=== PATIENT | female | born 1950 | race American Indian/Alaskan Native ===

== ENCOUNTER 2019-04-14 15:47 | Inpatient (IN) | payer MEDICARE ==
--- NOTE | 2019-04-14 17:18 | Emergency Department Report ---
ED General Adult HPI - General Chief complaint: Neuro Symptoms/Deficit Stated complaint: INVOLUNTARY MOVEMENTS Time Seen by Provider: 04/14/19 17:07 Source: patient, EMS Mode of arrival: Stretcher Limitations: Physical Limitation - History of Present Illness Initial comments: Patient is 69 years old female who resides at [facility] facility. Amarjit liu brought to the emergency room for evaluation of jerking movements in her right hand since last night. Patient denied any other symptoms. She denied any chest pain, weakness, numbness or tingling sensation. She also denied any headache, chest pain, shortness of breath, abdominal pain. - Related Data Allergies Allergy/AdvReac Type Severity Reaction Status Date / Time No Known Allergies Allergy Unverified 04/14/19 17:42 ED Review of Systems ROS: Stated complaint: INVOLUNTARY MOVEMENTS Other details as noted in HPI Comment: All other systems reviewed and negative Constitutional: denies: chills, fever Respiratory: denies: cough, shortness of breath, SOB with exertion Cardiovascular: denies: chest pain, palpitations Gastrointestinal: diarrhea (resolved yesterday. One episode last night). denies: abdominal pain, nausea, vomiting, constipation, hematemesis, hematochezi a Neurological: denies: headache, weakness, numbness, paresthesias, confusion, abnormal gait ED Past Medical Hx - Social History Smoking Status: Never Smoker Substance Use Type: None ED Physical Exam - General Limitations: Physical Limitation General appearance: alert, in no apparent distress - Head Head exam: Present: atraumatic, normocephalic, normal inspection - Eye Eye exam: Present: normal appearance, PERRL - ENT ENT exam: Present: normal exam, normal orophraynx, mucous membranes moist - Neck Neck exam: Present: normal inspection, full ROM. Absent: tenderness, meningismus, lymphadenopathy, thyromegaly - Respiratory Respiratory exam: Present: normal lung sounds bilaterally - Cardiovascular Cardiovascular Exam: Present: regular rate, normal rhythm, normal heart sounds - GI/Abdominal GI/Abdominal exam: Present: soft, normal bowel sounds. Absent: distended, tenderness, guarding, rebound, rigid, organomegaly, mass, bruit, pulsatile mass, hernia - Extremities Exam Extremities exam: Present: normal inspection, full ROM, normal capillary refill. Absent: pedal edema, calf tenderness - Back Exam Back exam: Present: normal inspection, full ROM. Absent: CVA tenderness (R) - Neurological Exam Neurological exam: Present: alert, oriented X3, CN II-XII intact - Psychiatric Psychiatric exam: Present: normal mood - Skin Skin exam: Present: warm, intact, normal color ED Course Vital Signs 04/14/19 04/14/19 04/14/19 16:42 17:13 20:12 Temperature 97.6 F 97.7 F Pulse Rate 64 87 Respiratory 14 14 13 Rate Blood Pressure 110/54 Blood Pressure 110/54 143/70 [Right] O2 Sat by Pulse 97 95 97 Oximetry ED Medical Decision Making - Lab Data Result diagrams: 04/14/19 17:22 04/14/19 17:22 - EKG Data -: EKG Interpreted by Nc EKG shows normal: sinus rhythm Rate: normal - Radiology Data Radiology results: report reviewed CT brain is negative for acute finding. - Medical Decision Making Patient is 69 years old female who resides at [facility]. Patient brought to the emergency room for evaluation of jerking movements in her right hand since last night. Patient denied any other symptoms. She denied any chest pain, weakness, numbness or tingling sensation. She also denied any headache, chest pain, shortness of breath, abdominal pain. Labs reviewed and showed a potassium of 5.5, creatinine 3.4 and a BUN of 60. Contacted long-term to find out if there is any baseline creatinine but unfortunately there is no record. I assumed this is acute on chronic renal failure. Patient started on normal saline. I discussed the patient was Dr. Aguilar, he had great admitted the patient to medical service for further management. Critical Care Time: Yes Critical care time in (mins) excluding proc time.: 30 Critical care attestation.: If time is entered above; I have spent that time in minutes in the direct care of this critically ill patient, excluding procedure time. ED Disposition Clinical Impression: Acute on chronic renal failure, Hyperkalemia Disposition: OP ADMIT IP TO THIS HOSP Is pt being admited?: Yes Condition: Stable
[2019-04-14 17:38] LABS: Basophils # (Auto) 0.1 K/mm3 (0.0-0.1); Basophils % (Auto) 0.8 % (0.0-1.8); Eosinophils # (Auto) 0.3 K/mm3 (0.0-0.4); Hematocrit 26.6 % (30.3-42.9); Hemoglobin 8.8 gm/dl (10.1-14.3); Lymphocytes # (Auto) 2.6 K/mm3 (1.2-5.4); Lymphocytes % (Auto) 30.1 % (13.4-35.0); Mean Corpuscular HGB Conc 33 % (30-34); Mean Corpuscular Volume 94 fl (79-97); Monocytes # (Auto) 0.5 K/mm3 (0.0-0.8); Monocytes % (Auto) 5.3 % (0.0-7.3); Platelet Count 231 K/mm3 (140-440); Red Blood Count 2.84 M/mm3 (3.65-5.03); Red Cell Distribution Width 15.1 % (13.2-15.2)
[2019-04-14 17:59] LABS: Alanine Aminotransferase 32 units/L (7-56); Albumin 3.2 g/dL (3.9-5); BUN/Creatinine Ratio 18; Blood Urea Nitrogen 61 mg/dL (7-17); Calcium 8.7 mg/dL (8.4-10.2); Hemolysis Index 3
[2019-04-14 19:39] LABS: Bacteria,Urine 1+ /HPF (Negative); Bilirubin,Urine NEG (Negative); Blood,Urine SM (Negative); Color,Urine Yellow (Yellow); Mucus,Urine FEW /HPF; Urobilinogen,Urine < 2.0 mg/dL (<2.0)
--- NOTE | 2019-04-14 20:08 | Cat Scan Report ---
CT head/brain wo con INDICATION / CLINICAL INFORMATION: jerking movement to the right upper extremity. TECHNIQUE: Axial CT imaging of brain was obtained without contrast. Coronal and sagittal reformatted imaging obt ained and reviewed. All CT scans at this location are performed using CT dose reduction for ALARA by means of automated exposure control. COMPARISON: Prior CT head from 2010 was not available for review. FINDINGS: No intracranial hemorrhage, mass, or midline shift is identified. No extra-axial fluid collection or suggestion of acute territorial infarct. Ventricular system and basilar cisterns are unremarkable. Th ere is moderate hypoattenuation throughout the white matter consistent with microvascular angiopathy. Visualized paranasal sinuses and mastoid air cells are well aerated and clear. No calvarial abnormali ty. IMPRESSION: 1. No acute intracranial abnormality. 2. 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
[2019-04-14] MEDS ORDERED: SODIUM CHLORIDE 0.9% 1000 ML 1,000 ML IV ONE (20:13)
[2019-04-14] MEDS ORDERED: SODIUM POLYSTYRENE 15 GM/60 ML ORAL LIQD PO ONE (22:19)
[2019-04-14] MEDS ORDERED: DEXTROSE 50% IN WATER (25GM) 50 ML SYRINGE IV ONE (22:23)
[2019-04-14] MEDS ORDERED: INSULIN REGULAR, HUMAN 100 UNITS/1 ML IV ONE (22:44)
[2019-04-14] MEDS ORDERED: SODIUM CHLORIDE 0.9% 1000 ML 1,000 ML IV SCH (23:00)
[2019-04-14] MEDS ORDERED: SODIUM POLYSTYRENE 15 GM/60 ML ORAL LIQD ONE (23:01)
[2019-04-14] MEDS ORDERED: INSULIN REGULAR, HUMAN 100 UNITS/1 ML ONE (23:02)
[2019-04-14] MEDS: HEPARIN 5,000 UNIT/1 ML VIAL SUB-Q SCH (23:16)
[2019-04-15] MEDS: traMADol 50 MG TAB PO PRN ×2 (03:47→14:08)
[2019-04-15] MEDS ORDERED: traMADol 50 MG TAB PO PRN (03:50)
[2019-04-15] MEDS ORDERED: DOCUSATE SODIUM 100 MG CAP PO PRN (03:50)
--- NOTE | 2019-04-15 07:09 | History and Physical Report ---
CHIEF COMPLAINT: Weakness. Other complaints include jerky movement of the body. HISTORY OF PRESENTING ILLNESS: The patient is a 69-year-old female brought from a skilled nursing because of weakness. The patient states she is having problem ambulating and also noted some jerky movement in the right hand that started the night prior to presentation. There is no history of numbness. No history of dizziness or tingling sensation. Also, the patient denied history of speech impairment, but complained about feeling weak generally and unable to ambulate. There is no history of chest pain, shortness of breath, nausea or vomiting. PAST MEDICAL HISTORY: Pertinent for chronic kidney disease. The patient's past medical history is also pertinent for diabetes mellitus. The patient also has past medical history of hypertension. PAST SURGICAL HISTORY: Noncontributory. FAMILY HISTORY: Noncontributory. SOCIAL HISTORY: The patient stays at the [facility] and does not smoke cigarette, does not drink alcohol and does not use illicit drugs. MEDICATIONS: The patient's home medications include Tylenol 650 mg by mouth every 4 hours. The patient is on amitriptyline 200 mg by mouth at bedtime. Also, the patient is on aspirin 81 mg enteric coated by mouth daily. The patient is on atorvastatin 20 mg at bedtime. Also, the patient is on carvedilol 6.25 mg by mouth every morning. The patient is also on diclofenac 1% topical 2 g applied topically q.i.d. The patient is on docusate sodium 100 mg by mouth twice daily and fluoxetine 40 mg by mouth daily. The patient is also on Lasix 40 mg by mouth daily and on folic acid 1 mg by mouth daily. The patient is also on gabapentin 300 mg by mouth twice daily and on insulin lispro 3 units subcutaneous t.i.d. with meals. The patient is also on lidocaine patch topical, 1 patch topical every 24 hours. The patient is on losartan 50 mg by mouth daily and nifedipine 30 mg by mouth daily. The patient is also on MiraLax 17 grams by mouth daily and sennosides 8.6 mg 2 tablets by mouth daily. The patient is on tramadol 50 mg by mouth every 6 hours as needed for pain. ALLERGIES: There are no known drug allergies. REVIEW OF SYSTEMS: CONSTITUTIONAL: There is no fever, no chills, no diaphoresis. HEENT: There is no headache or sore throat. CARDIOVASCULAR SYSTEM: There is no chest pain or orthopnea. RESPIRATORY SYSTEM: There is no shortness of breath or cough. GASTROINTESTINAL SYSTEM: There is no nausea, no vomiting, no abdominal pain, diarrhea or constipation. NEUROLOGICAL SYSTEM: Generalized weakness noted. Jerky movement of the right upper extremity noted. MUSCULOSKELETAL SYSTEM: There is no joint pain or swelling. DERMATOLOGICAL SYSTEM: There is no skin rash or itching. GENITOURINARY SYSTEM: There is no dysuria, hematuria, or flank pain. Rest of system review is normal. PHYSICAL EXAMINATION: GENERAL: At the time of exam, the patient was found to be alert, oriented x 3 and not in acute distress. VITAL SIGNS: At the initial time of presentation showed temperature of 97.6 degrees Fahrenheit, pulse of 64, respirations 14, blood pressure 110/54, O2 sat of 97% on room air. HEENT: Showed pupils to be equal, round, reactive to light and accommodating. Extraocular muscles are intact. NECK: Supple with no JVD or carotid bruit. CARDIOVASCULAR SYSTEM: Showed normal first and second heart sounds with no gallops or murmurs and the patient has 1+ pitting edema. RESPIRATORY SYSTEM: Showed good air entry on both sides of the lungs with no abnormal breath sounds. GASTROINTESTINAL SYSTEM: Showed abdomen to be full, soft, nontender with no organomegaly or rigidity. NEUROLOGIC: Shows no focal deficit. MUSCULOSKELETAL SYSTEM: Showed no joint swelling or tenderness except for mild swelling in the ankles. GENITOURINARY: Showed no costovertebral angle tenderness. PERTINENT LABORATORY AND IMAGING STUDIES: The patient has CT of the head without contrast done that shows no acute intracranial abnormality. There are age-related changes including microvascular angiopathy. Lab results, the patient has CBC done with normal white count, low hemoglobin of 8.8 and low hematocrit of 26.6 with CBC differential being unremarkable. The patient's chemistry showed low sodium of 133 with elevated potassium level of 5.5, low CO2 of 19, high BUN of 61 and high creatinine of 3.4 with elevated blood glucose level of 213. The patient's albumin level is slightly low with a value of 3.2 and the patient's urinalysis shows yellow colored, slightly cloudy urine with elevated urine wbc's of 8 and small urine leukocyte esterase with 1+ bacteria and negative urine nitrite. DIAGNOSES: 1. Weakness. 2. Chronic kidney disease. 3. Hyperkalemia. 4. Urinary tract infection. 5. Anemia. PLAN OF CARE: 1. The patient will be admitted to medical/surgical floor on remote telemetry. 2. The patient will have Nephrology consult with Dr. Winters for management of chronic kidney disease. Also, the patient will have physical therapy consult for management of weakness and difficulty with ambulation. 3. The patient will be on Kayexalate 30 g by mouth x 1 dose. The patient will be placed on IV dextrose 50, 25 mL x 1 dose and IV regular insulin 8 units for treatment of hyperkalemia. 4. The patient will be on heparin 5000 units subcutaneous q. 12 for DVT prophylaxis. 5. The patient will be on her home medication as shown in the medication reconciliation section. 6. The patient will be on ceftriaxone 1 g IV daily for treatment of UTI. 7. The patient will be on Accu-Chek before meals and at bedtime, followed by low-dose sliding scale using regular insulin coverage. 8. The patient will be on consistent carbohydrate diet and low sodium diet. JOB# [id number] ÁNGELN/PREMA CAMPOS
[2019-04-15 07:12] LABS: Calcium 8.6 mg/dL (8.4-10.2)
[2019-04-15] MEDS: INSULIN REGULAR, HUMAN 100 UNITS/1 ML SUB-Q SCH ×4 (07:41→22:32)
[2019-04-15] MEDS: NIFEdipine XL 30 MG TAB PO SCH (08:01)
--- NOTE | 2019-04-15 08:28 | Progress Note ---
Assessment and Plan Assessment and plan: Patient is 69 years old female who resides at [facility] facility with past medical hx CKD, DM, HTN. Patient brought to the emergency room for evaluation of jerking movements in her right hand since last night. Patient denied any other symptoms. She denied any chest pain, weakness, numbness or tingling sensation. She also denied any headache, chest pain, shortness of breath, abdominal pain. 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 Hyponatremia- Improved Plan Continue supportive care Neurology eval Obtain PT/OT eval Nephrology consulted ?IF Twitches was secondary to hyperkalemia vs underlying Central disease Continue supporitve care, IV hydration Dm management DVT/GI prophy Anticipate discharge in AM History Interval history: Patient seen and examined, Daughter at bedside, provides more information, although involuntary twitching frequency appears improved, she reports spilling her coffee this morning due to the twitches. Patient currently in rehab due to left knee pain from a fall. Hospitalist Physical - Physical exam Narrative exam: - General Limitations: Physical Limitation General appearance: alert, mild distress secondary to left knee pain, subacute, obese - Head Head exam: Present: atraumatic, normocephalic, normal inspection - Eye Eye exam: Present: normal appearance, PERRL - ENT ENT exam: Present: normal exam, normal orophraynx, mucous membranes moist - Neck Neck exam: Present: normal inspection, full ROM. Absent: tenderness, mening ismus, lymphadenopathy, thyromegaly - Respiratory Respiratory exam: Present: normal lung sounds bilaterally - Cardiovascular Cardiovascular Exam: Present: regular rate, normal rhythm, normal heart sounds - GI/Abdominal GI/Abdominal exam: Present: soft, normal bowel sounds. Absent: distended, tenderness, guarding, rebound, rigid, organomegaly, mass, bruit, pulsatile mass, hernia - Extremities Exam Extremities exam: Present: normal inspection, full ROM, normal capillary refill. Absent: pedal edema, calf tenderness - Back Exam Back exam: Present: normal inspection, full ROM. Absent: CVA tenderness (R) - Neurological Exam Neurological exam: Present: alert, oriented X3, CN II-XII intact, intermittent twitching - Psychiatric Psychiatric exam: Present: normal mood - Skin Skin exam: Present: warm, intact, normal color - Constitutional Vitals: Temp Pulse Resp BP Pulse Ox 99.1 F 95 H 20 182/82 100 04/15/19 07:14 04/15/19 07:14 04/15/19 07:14 04/15/19 07:14 04/15/19 07:14 Results - Labs CBC & Chem 7: 04/14/19 17:22 04/15/19 05:56 Labs: Laboratory Last Values WBC 8.8 K/mm3 (4.5-11.0) 04/14/19 17:22 RBC 2.84 M/mm3 (3.65-5.03) L 04/14/19 17:22 Hgb 8.8 gm/dl (10.1-14.3) L 04/14/19 17:22 Hct 26.6 % (30.3-42.9) L 04/14/19 17:22 MCV 94 fl (79-97) 04/14/19 17:22 MCH 31 pg (28-32) 04/14/19 17:22 MCHC 33 % (30-34) 04/14/19 17:22 RDW 15.1 % (13.2-15.2) 04/14/19 17:22 Plt Count 231 K/mm3 (140-440) 04/14/19 17:22 Lymph % (Auto) 30.1 % (13.4-35.0) 04/14/19 17:22 [place] % (Auto) 5.3 % (0.0-7.3) 04/14/19 17:22 Eos % (Auto) 4.0 % (0.0-4.3) 04/14/19 17:22 Baso % (Auto) 0.8 % (0.0-1.8) 04/14/19 17:22 Lymph # 2.6 K/mm3 (1.2-5.4) 04/14/19 17:22 [place]ama # 0.5 K/mm3 (0.0-0.8) 04/14/19 17:22 Eos # 0.3 K/mm3 (0.0-0.4) 04/14/19 17:22 Baso # 0.1 K/mm3 (0.0-0.1) 04/14/19 17:22 Seg Neutrophils % 59.8 % (40.0-70.0) 04/14/19 17:22 Seg Neutrophils # 5.3 K/mm3 (1.8-7.7) 04/14/19 17:22 Sodium 140 mmol/L (137-145) D 04/15/19 05:56 Potassium 4.6 mmol/L (3.6-5.0) 04/15/19 05:56 Chloride 107.4 mmol/L (98-107) H 04/15/19 05:56 Carbon Dioxide 22 mmol/L (22-30) 04/15/19 05:56 Anion Gap 15 mmol/L 04/15/19 05:56 BUN 56 mg/dL (7-17) H 04/15/19 05:56 Creatinine 3.0 mg/dL (0.7-1.2) H 04/15/19 05:56 Estimated GFR 19 ml/min 04/15/19 05:56 BUN/Creatinine Ratio 19 % 04/15/19 05:56 Glucose 154 mg/dL (65-100) H 04/15/19 05:56 POC Glucose 149 (70-105) H 04/15/19 07:20 Calcium 8.6 mg/dL (8.4-10.2) 04/15/19 05:56 Total Bilirubin < 0.20 mg/dL (0.1-1.2) 04/14/19 17:22 AST 22 units/L (5-40) 04/14/19 17:22 ALT 32 units/L (7-56) 04/14/19 17:22 Alkaline Phosphatase 95 units/L (35-129) 04/14/19 17:22 Total Protein 6.6 g/dL (6.3-8.2) 04/14/19 17:22 Albumin 3.2 g/dL (3.9-5) L 04/14/19 17:22 Albumin/Globulin Ratio 0.9 % 04/14/19 17:22 Urine Color Yellow (Yellow) 04/14/19 19:20 Urine Turbidity Slightly-cloudy (Clear) 04/14/19 19:20 Urine pH 5.0 (5.0-7.0) 04/14/19 19:20 Ur Specific [place] 1.014 (1.003-1.030) 04/14/19 19:20 Urine Protein 100 mg/dl mg/dL (Negative) 04/14/19 19:20 Urine Glucose (UA) 50 mg/dL (Negative) 04/14/19 19:20 Urine Ketones Neg mg/dL (Negative) 04/14/19 19:20 Urine Blood Sm (Negative) 04/14/19 19:20 Urine Nitrite Neg (Negative) 04/14/19 19:20 Urine Bilirubin Neg (Negative) 04/14/19 19:20 Urine Urobilinogen < 2.0 mg/dL (<2.0) 04/14/19 19:20 Ur Leukocyte Esterase Sm (Negative) 04/14/19 19:20 Urine WBC (Auto) 8.0 /HPF (0.0-6.0) H 04/14/19 19:20 Urine RBC (Auto) 6.0 /HPF (0.0-6.0) 04/14/19 19:20 U Epithel Cells (Auto) 4.0 /HPF (0-13.0) 04/14/19 19:20 Urine Bacteria (Auto) 1+ /HPF (Negative) 04/14/19 19:20 Urine Mucus Few /HPF 04/14/19 19:20 Active Medications - Current Medications Current Medications: Generic Name Dose Route Start Last Admin Trade Name Freq PRN Reason Stop Dose Admin Amitriptyline HCl 200 mg 04/15/19 22:00 Elavil PO QHS [facility] Atorvastatin Calcium 20 mg 04/15/19 22:00 Lipitor PO QHS [facility] Carvedilol 6.25 mg 04/15/19 10:00 Coreg PO QAM [facility] Docusate Sodium 100 mg 04/15/19 03:50 Colace PO BID PRN Constipation Fluoxetine HCl 40 mg 04/15/19 10:00 Prozac PO QDAY [facility] Folic Acid 1 mg 04/15/19 10:00 Folvite PO QDAY [facility] Gabapentin 300 mg 04/15/19 10:00 Neurontin PO BID [facility] Heparin Sodium (Porcine) 5,000 unit 04/14/19 22:15 04/14/19 23:16 Heparin SUB-Q 5,000 unit Q12HR [facility] Administration Ceftriaxone Sodium 1 gm in 50 mls @ 100 mls/hr 04/15/19 10:00 Rocephin/Ns 1 Gm/50 Ml IV Q24HR [facility] Protocol Insulin Human Regular 0 units 04/15/19 07:30 04/15/19 07:41 Humulin R SUB-Q Not Given AC [facility] Protocol Insulin Human Regular 0 units 04/15/19 22:00 Humulin R SUB-Q QHS [facility] Protocol Losartan Potassium 50 mg 04/15/19 10:00 Cozaar PO QDAY [facility] Nifedipine 30 mg 04/15/19 08:00 04/15/19 08:01 Procardia Xl PO 30 mg QDAY@0800 [facility] Administration Polyethylene Glycol 17 gm 04/15/19 10:00 Miralax 3350 PO QDAY [facility] Tramadol HCl 50 mg 04/15/19 03:33 04/15/19 03:47 Ultram PO 50 mg Q6H PRN Administration Pain, Moderate (4-6)
[2019-04-15] MEDS ORDERED: DICLOFENAC SODIUM 1% TOPICAL GEL 100 GM TP SCH (10:00)
[2019-04-15] MEDS ORDERED: LOSARTAN 50 MG TAB PO SCH (10:00)
[2019-04-15] MEDS ORDERED: FLUoxetine 20 MG CAP PO SCH (10:00)
[2019-04-15] MEDS: HEPARIN 5,000 UNIT/1 ML VIAL SUB-Q SCH ×2 (10:08→22:31)
[2019-04-15] MEDS: GABAPENTIN 300 MG CAP PO SCH ×2 (10:08→22:31)
[2019-04-15] MEDS: FOLIC ACID 1 MG TAB PO SCH (10:09)
[2019-04-15] MEDS: POLYETHYLENE GLYCOL 3350 17 GM POWDER PO SCH (10:09)
[2019-04-15] MEDS: carvediloL 6.25 MG TAB PO SCH (10:09)
[2019-04-15] MEDS: cefTRIAXone/NS 1 GM/50 ML 1 GM/50 ML BAG IV SCH (10:09)
--- NOTE | 2019-04-15 11:20 | Consultation ---
History of Present Illness - Reason for Consult Consult date: 04/15/19 acute renal failure Requesting physician: MAURICIO JACKSON - History of Present Illness 69 years old female who resides at [facility] facility. Patient brought to the emergency room for evaluation of jerking movements in her right hand since last night. Patient denied any other symptoms. She denied any chest pain, weakness, numbness or tingling sensation. She also denied any headache, chest pain, shortness of breath, abdominal pain. ROS: Stated complaint: INVOLUNTARY MOVEMENTS Other details as noted in HPI Comment: All other systems reviewed and negative Constitutional: denies: chills, fever Respiratory: denies: cough, shortness of breath, SOB with exertion Cardiovascular: denies: chest pain, palpitations Gastrointestinal: diarrhea (resolved yesterday. One episode last night). denies: abdominal pain, nausea, vomiting, constipation, hematemesis, hematochezia Neurological: denies: headache, weakness, numbness, paresthesias, confusion, abnormal gait - Social History Smoking Status: Never Smoker Substance Use Type: None Past History Past Medical History: diabetes, hypertension Medications and Allergies Allergies Allergy/AdvReac Type Severity Reaction Status Date / Time No Known Allergies Allergy Unverified 04/14/19 17:42 Home Medications Medication Instructions Recorded Confirmed Last Taken Type Acetaminophen [Tylenol] 1,000 mg PO Q8HR 04/14/19 04/14/19 Unknown History Acetaminophen [Tylenol] 650 mg PO Q4HR PRN 04/14/19 04/14/19 Unknown History Amitriptyline HCl 200 mg PO QHS 04/14/19 04/14/19 Unknown History Aspirin EC [Halfprin EC] 81 mg PO QDAY 04/14/19 04/14/19 Unknown History AtorvaSTATin [Lipitor] 20 mg PO QHS 04/14/19 04/14/19 Unknown History Carvedilol [Coreg] 6.25 mg PO QAM 04/14/19 04/14/19 Unknown History Diclofenac 1% [Diclofenac 1% 2 gm TP QID 04/14/19 04/14/19 Unknown History topical gel] Docusate Sodium [Colace] 100 mg PO BID PRN 04/14/19 04/14/19 Unknown History FLUoxetine HCL [PROzac] 40 mg PO QDAY 04/14/19 04/14/19 Unknown History Folic Acid [Folvite] 1 mg PO QDAY 04/14/19 04/14/19 Unknown History Furosemide [Lasix TAB] 40 mg PO BID 04/14/19 04/14/19 Unknown History Gabapentin [Neurontin] 300 mg PO BID 04/14/19 04/14/19 Unknown History Insulin Lispro 3 unit SQ TIDWM 04/14/19 04/14/19 Unknown History Lidocaine [Lidoderm] 1 each TP Q24H PRN 04/14/19 04/14/19 Unknown History Lispro Insulin [HumaLOG] See Protocol SQ ACHS 04/14/19 04/14/19 Unknown History Losartan [Cozaar] 50 mg PO QDAY 04/14/19 04/14/19 Unknown History NIFEdipine [Nifedipine ER] 30 mg PO QDAY 04/14/19 04/14/19 Unknown History Polyethylene Glycol 3350 [Miralax 17 gm PO QDAY 04/14/19 04/14/19 Unknown History 3350] Sennosides Tab [Senokot] 2 tab PO QDAY PRN 04/14/19 04/14/19 Unknown History traMADol [Ultram] 50 mg PO Q6HR PRN 04/14/19 04/14/19 Unknown History Active Meds: Active Medications Amitriptyline HCl (Elavil) 200 mg PO QHS [facility] Atorvastatin Calcium (Lipitor) 20 mg PO QHS [facility] Carvedilol (Coreg) 6.25 mg PO QAM [facility] Last Admin: 04/15/19 10:09 Dose: 6.25 mg Documented by: Docusate Sodium (Colace) 100 mg PO BID PRN PRN Reason: Constipation Fluoxetine HCl (Prozac) 40 mg PO QDAY [facility] Last Admin: 04/15/19 10:08 Dose: 40 mg Documented by: Folic Acid (Folvite) 1 mg PO QDAY [facility] Last Admin: 04/15/19 10:09 Dose: 1 mg Documented by: Gabapentin (Neurontin) 300 mg PO BID [facility] Last Admin: 04/15/19 10:08 Dose: 300 mg Documented by: Heparin Sodium (Porcine) (Heparin) 5,000 unit SUB-Q Q12HR [facility] Last Admin: 04/15/19 10:08 Dose: 5,000 unit Documented by: Ceftriaxone Sodium (Rocephin/Ns 1 Gm/50 Ml) 1 gm in 50 mls @ 100 mls/hr IV Q24HR [facility]; Protocol Last Admin: 04/15/19 10:09 Dose: 100 mls/hr Documented by: Insulin Human Regular (Humulin R) 0 units SUB-Q AC [facility]; Protocol Last Admin: 04/15/19 07:41 Dose: Not Given Documented by: Insulin Human Regular (Humulin R) 0 units SUB-Q QHS [facility]; Protocol Losartan Potassium (Cozaar) 50 mg PO QDAY [facility] Last Admin: 04/15/19 10:09 Dose: 50 mg Documented by: Nifedipine (Procardia Xl) 30 mg PO QDAY@0800 [facility] Last Admin: 04/15/19 08:01 Dose: 30 mg Documented by: Polyethylene Glycol (Miralax 3350) 17 gm PO QDAY [facility] Last Admin: 04/15/19 10:09 Dose: Not Given Documented by: Tramadol HCl (Ultram) 50 mg PO Q6H PRN PRN Reason: Pain, Moderate (4-6) Last Admin: 04/15/19 03:47 Dose: 50 mg Documented by: Exam - Vital Signs Vital signs: Vital Signs Temp Pulse Resp BP Pulse Ox 97.6 F 64 14 110/54 97 04/14/19 16:42 04/14/19 16:42 04/14/19 16:42 04/14/19 16:42 04/14/19 16:42 - Physical Exam Narrative exam: - General Limitations: Physical Limitation General appearance: alert, in no apparent distress - Head Head exam: Present: atraumatic, normocephalic, normal inspection - Eye Eye exam: Present: normal appearance, PERRL - ENT ENT exam: Present: normal exam, normal orophraynx, mucous membranes moist - Neck Neck exam: Present: normal inspection, full ROM. Absent: tenderness, meningismus, lymphadenopathy, thyromegaly - Respiratory Respiratory exam: Present: normal lung sounds bilaterally - Cardiovascular Cardiovascular Exam: Present: regular rate, normal rhythm, normal heart sounds - GI/Abdominal GI/Abdominal exam: Present: soft, normal bowel sounds. Absent: distended, tenderness, guarding, rebound, rigid, organomegaly, mass, bruit, pulsatile mass, hernia - Extremities Exam Extremities exam: Present: normal inspection, full ROM, normal capillary refill. Absent: pedal edema, calf tenderness - Back Exam Back exam: Present: normal inspection, full ROM. Absent: CVA tenderness (R) - Neurological Exam Neurological exam: Present: alert, oriented X3, CN II-XII intact - Psychiatric Psychiatric exam: Present: normal mood - Skin Skin exam: Present: warm, intact, normal color Results - Lab Results 04/14/19 17:22 04/15/19 05:56 Most recent lab results Calcium 8.6 mg/dL (8.4-10.2) 04/15/19 05:56 Assessment and Plan Impression: * BETY * UTI * volume depletion * AMS * hyperglycemia * depression Plan: * bety likely due to volume depletion and hypoperfusion with UTI * iv abx and ivfs * strict i/os * dailys lytes * renal diet * follow up renal us with pvr * cr is better today' * no indication for thai masseur * hold arb and prozac with hyperkalemia and hyponatremia
[2019-04-15] MEDS ORDERED: SODIUM CHLORIDE 0.9% 1000 ML 1,000 ML IV SCH (12:00)
--- NOTE | 2019-04-15 14:10 | Consultation ---
History of Present Illness Consult date: 04/15/19 Reason for Consult: Jerking arm movements Chief complaint: Jerking arm movements History of present illness: Patient is a 69 y/o woman w/ a h/o CKD, DM, HTN, HLD, CHF. She has been in a nursing facility undergoing rehab for the past few weeks, after she was admitted 1.5 months ago with a fall. Yesterday at around noon, patient was noted to have b/l upper extremity jerking movements. Staff at the nursing facility then called EMS. Patient reports that the night before, she had gone to visit her daughter to have dinner, and had developed diarrhea. She states that she was tired when she got back to the nursing facility that evening, and went to sleep. She also states that when she fell about 1.5 months ago, she lost consciousness, and is not certain how long that lasted for. She awoke on the floor, and was found by her neighbor. She has had left hip pain since that event, and this continues to persist. She feels that the left hip pain is what has been limiting her walking since the fall. Past History Past Medical History: diabetes, hypertension, other (h/o CKD, DM, HTN, HLD, CHF) Social history: no significant social history Family history: no significant family history Medications and Allergies Allergies Allergy/AdvReac Type Severity Reaction Status Date / Time No Known Allergies Allergy Unverified 04/14/19 17:42 Home Medications Medication Instructions Recorded Confirmed Last Taken Type Acetaminophen [Tylenol] 1,000 mg PO Q8HR 04/14/19 04/14/19 Unknown History Acetaminophen [Tylenol] 650 mg PO Q4HR PRN 04/14/19 04/14/19 Unknown History Amitriptyline HCl 200 mg PO QHS 04/14/19 04/14/19 Unknown History Aspirin EC [Halfprin EC] 81 mg PO QDAY 04/14/19 04/14/19 Unknown History AtorvaSTATin [Lipitor] 20 mg PO QHS 04/14/19 04/14/19 Unknown History Carvedilol [Coreg] 6.25 mg PO QAM 04/14/19 04/14/19 Unknown History Diclofenac 1% [Diclofenac 1% 2 gm TP QID 04/14/19 04/14/19 Unknown History topical gel] Docusate Sodium [Colace] 100 mg PO BID PRN 04/14/19 04/14/19 Unknown History FLUoxetine HCL [PROzac] 40 mg PO QDAY 04/14/19 04/14/19 Unknown History Folic Acid [Folvite] 1 mg PO QDAY 04/14/19 04/14/19 Unknown History Furosemide [Lasix TAB] 40 mg PO BID 04/14/19 04/14/19 Unknown History Gabapentin [Neurontin] 300 mg PO BID 04/14/19 04/14/19 Unknown History Insulin Lispro 3 unit SQ TIDWM 04/14/19 04/14/19 Unknown History Lidocaine [Lidoderm] 1 each TP Q24H PRN 04/14/19 04/14/19 Unknown History Lispro Insulin [HumaLOG] See Protocol SQ ACHS 04/14/19 04/14/19 Unknown History Losartan [Cozaar] 50 mg PO QDAY 04/14/19 04/14/19 Unknown History NIFEdipine [Nifedipine ER] 30 mg PO QDAY 04/14/19 04/14/19 Unknown History Polyethylene Glycol 3350 [Miralax 17 gm PO QDAY 04/14/19 04/14/19 Unknown History 3350] Sennosides Tab [Senokot] 2 tab PO QDAY PRN 04/14/19 04/14/19 Unknown History traMADol [Ultram] 50 mg PO Q6HR PRN 04/14/19 04/14/19 Unknown History Active Meds: Active Medications Amitriptyline HCl (Elavil) 200 mg PO QHS [facility] Atorvastatin Calcium (Lipitor) 20 mg PO QHS [facility] Carvedilol (Coreg) 6.25 mg PO QAM [facility] Last Admin: 04/15/19 10:09 Dose: 6.25 mg Documented by: Docusate Sodium (Colace) 100 mg PO BID PRN PRN Reason: Constipation Folic Acid (Folvite) 1 mg PO QDAY [facility] Last Admin: 04/15/19 10:09 Dose: 1 mg Documented by: Gabapentin (Neurontin) 300 mg PO BID [facility] Last Admin: 04/15/19 10:08 Dose: 300 mg Documented by: Heparin Sodium (Porcine) (Heparin) 5,000 unit SUB-Q Q12HR [facility] Last Admin: 04/15/19 10:08 Dose: 5,000 unit Documented by: Ceftriaxone Sodium (Rocephin/Ns 1 Gm/50 Ml) 1 gm in 50 mls @ 100 mls/hr IV Q24HR [facility]; Protocol Last Admin: 04/15/19 10:09 Dose: 100 mls/hr Documented by: Sodium Chloride (Nacl 0.9% 1000 Ml) 1,000 mls @ 75 mls/hr IV DIRECT [facility] Insulin Human Regular (Humulin R) 0 units SUB-Q AC [facility]; Protocol Last Admin: 04/15/19 12:30 Dose: 2 units Documented by: Insulin Human Regular (Humulin R) 0 units SUB-Q QHS [facility]; Protocol Nifedipine (Procardia Xl) 30 mg PO QDAY@0800 [facility] Last Admin: 04/15/19 08:01 Dose: 30 mg Documented by: Polyethylene Glycol (Miralax 3350) 17 gm PO QDAY [facility] Last Admin: 04/15/19 10:09 Dose: Not Given Documented by: Tramadol HCl (Ultram) 50 mg PO Q6H PRN PRN Reason: Pain, Moderate (4-6) Last Admin: 04/15/19 03:47 Dose: 50 mg Documented by: Review of Systems All systems: negative Musculoskeletal: other (left hip pain) Neurological: other (b/l upper extremity jerking movements) Physical Examination - Vital Signs Vital Signs: Vital Signs Temp Pulse Resp BP Pulse Ox 97.6 F 64 14 110/54 97 04/14/19 16:42 04/14/19 16:42 04/14/19 16:42 04/14/19 16:42 04/14/19 16:42 - Physical Exam Narrative exam: Patient is awake, alert, oriented x4, follows complex commands. PERRL, VFF, tongue midline, no facial weakness, b/l intact to LT. No dysarthria or aphasia noted. B/l UE strength 5/5, RLE strength 4/5, LLE strength 2/5 and limited due to pain in left hip. B/l intact to LT. 2+ reflexes throughout. Limited range of motion of LLE due to hip pain. B/l intact to FTN. Negative myoclonus/asterixis noted with arms outstretched in b/l UE. - Constitutional General appearance: comfortable - EENT EENT: Present: ATNC, PERRL, mucous membranes moist, hearing intact, vision intact - Respiratory Respiratory: Present: lungs clear, normal breath sounds - Cardiovascular Cardiovascular: Present: regular rate, normal S1, normal S2 Extremities: Present: no clubbing, cyanosis, no inflammation - Gastrointestinal Gastrointestinal: Present: normoactive bowel sounds, soft, non-tender - Integumentary Integumentary: Present: normal - Psychiatric Psychiatric: Present: mood/affect appropriate Results - Laboratory Findings CBC and BMP: 04/14/19 17:22 04/15/19 05:56 Abnormal Lab Findings: Abnormal Labs 04/14/19 04/14/19 04/14/19 17:22 17:22 19:20 RBC 2.84 L Hgb 8.8 L Hct 26.6 L Sodium 133 L Potassium 5.5 H Chloride Carbon Dioxide 19 L BUN 61 H Creatinine 3.4 H Glucose 213 H POC Glucose Albumin 3.2 L Urine WBC (Auto) 8.0 H 04/14/19 04/15/19 04/15/19 22:34 05:56 07:20 RBC Hgb Hct Sodium Potassium Chloride 107.4 H Carbon Dioxide BUN 56 H Creatinine 3.0 H Glucose 154 H POC Glucose 158 H 149 H Albumin Urine WBC (Auto) 04/15/19 11:44 RBC Hgb Hct Sodium Potassium Chloride Carbon Dioxide BUN Creatinine Glucose POC Glucose 229 H Albumin Urine WBC (Auto) Assessment and Plan Patient is a 69 y/o woman w/ a h/o CKD, DM, HTN, HLD, CHF, who p/w b/l UE jerking movements since yesterday. According to the patient's clinical findings, she has negative myoclonus/asterixis, which is notable on exam with arms outstretched. Patient states that the movement in arms has improved since yesterday, which correlates with improvement in renal function. Plan: 1. Negative myoclonus/asterixis: - Likely due to underlying CKD with worsened renal function - Improving now that creatinine is also improving. - Will check ammonia level. - Continue to correct metabolic abnormalities per primary/nephrology teams - Will check EEG, as patient had a loss of consciousness 1.5 months ago. - Will continue to monitor patient's neurologic status. Thank you for allowing me to take part in the care of this patient. Danilo Dempsey MD Neurology
--- NOTE | 2019-04-15 16:31 | Ultrasound Report ---
ULTRASOUND RENAL INDICATION / CLINICAL INFORMATION: renal failure. COMPARISON: None available. FINDINGS: RIGHT KIDNEY: Length = 12.2 cm. [normal > 9 cm] - Parenchymal Thickness = 1.6 cm. [normal > 1.5 cm] - Echogenicity: Increased - Hydronephrosis: None. - Cyst or mass: No significant abnormality. - Stones: None seen. LEFT KIDNEY: Length = 10.1 cm. [normal > 9 cm] - Parenchymal Thickness = 1.2 cm. [normal > 1.5 cm] - Echogenicity: Increased - Hydronephrosis: None. - Cyst or mass: A 1.2 cm cyst is noted in the inferior left kidney. - Stones: None seen. URINARY BLADDER: No significant abnormality. FREE FLUID: None. ADDITIONAL FINDINGS: None. IMPRESSION: Nonspecific renal parenchymal disease. Simple left renal cyst. No obstructive uropathy. Signer Name: Singh Mas Jr, MD Signed: 04/15/2019 4:26 PM Workstation Name: [id number]
--- NOTE | 2019-04-15 16:31 | Ultrasound Report ---
ULTRASOUND BLADDER RESIDUAL HISTORY: Renal failure TECHNIQUE: Transabdominal ultrasound. FINDINGS: Prevoid bladder volume measures 1027 cc. Post void residual measures 487 cc. No bladder wall thickening or bladder mass is identified. IMPRESSION: Large post void residual measuring 487 cc. Signer Name: Singh Mas Jr, MD Signed: 04/15/2019 4:27 PM Workstation Name: [id number]
--- NOTE | 2019-04-15 18:42 | Electroencephalogram Report ---
Electroencephalogram EEG Date of exam: 04/15/19 History: Patient is a 69 y/o woman w/ a h/o CKD, DM, HTN, HLD, CHF, who p/w b/l UE jerking for past 1 day, and a LOC 1.5 months ago. Impression: Impression: Normal waking and drowsy EEG. Description: The waking background shows an appropriate organization with well-defined anterior posterior voltage and frequency gradients. Posteriorly, there is a well-developed alpha rhythm of [8-10] Hz which is symmetrical and bilaterally reactive. Anteriorly, there is a pattern of lower voltage and slightly irregular theta and beta range frequencies. During drowsiness, there is attenuation of the background rhythms. Photic stimulation and hyperventilation were not performed. Throughout, the recording there are no epileptiform abnormalities, focal or lateralizing features, or significant interhemispheric findings. Interpretation: A normal EEG does not rule out seizures. Clinical correlation recommended.
[2019-04-15] MEDS: AMITRIPTYLINE 25 MG TAB PO SCH (22:30)
[2019-04-15] MEDS: hydrALAZINE 20 MG/1 ML INJ IV PRN (23:11)
[2019-04-16 05:37] LABS: Hematocrit 28.2 % (30.3-42.9); Hemoglobin 9.3 gm/dl (10.1-14.3); Mean Corpuscular HGB Conc 33 % (30-34); Mean Corpuscular Volume 93 fl (79-97); Platelet Count 227 K/mm3 (140-440); Red Blood Count 3.02 M/mm3 (3.65-5.03); Red Cell Distribution Width 14.9 % (13.2-15.2)
[2019-04-16 06:06] LABS: Calcium 8.9 mg/dL (8.4-10.2)
[2019-04-16] MEDS: INSULIN REGULAR, HUMAN 100 UNITS/1 ML SUB-Q SCH ×4 (07:45→22:11)
[2019-04-16] MEDS: NIFEdipine XL 30 MG TAB PO SCH (08:12)
[2019-04-16] MEDS: traMADol 50 MG TAB PO PRN ×3 (08:12→20:35)
[2019-04-16] MEDS: cefTRIAXone/NS 1 GM/50 ML 1 GM/50 ML BAG IV SCH (09:44)
[2019-04-16] MEDS: carvediloL 6.25 MG TAB PO SCH (09:48)
[2019-04-16] MEDS: FOLIC ACID 1 MG TAB PO SCH (09:48)
[2019-04-16] MEDS: POLYETHYLENE GLYCOL 3350 17 GM POWDER PO SCH (09:49)
[2019-04-16] MEDS: HEPARIN 5,000 UNIT/1 ML VIAL SUB-Q SCH ×2 (09:49→22:10)
[2019-04-16] MEDS: GABAPENTIN 300 MG CAP PO SCH ×2 (09:49→22:09)
--- NOTE | 2019-04-16 11:49 | Progress Note ---
Assessment and Plan Patient is 69 years old female who resides at [facility] facility with past medical hx CKD, DM, HTN. Patient brought to the emergency room for evaluation of jerking movements in her right hand since last night. Patient denied any other symptoms. She denied any chest pain, weakness, numbness or tingling sensation. She also denied any headache, chest pain, shortness of breath, abdominal pain. 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 The EEG showed no epileptiform activity Hyponatremia - Improved Plan Continue supportive care Neurology eval Obtain PT/OT eval Nephrology consulted ?IF Twitches was secondary to acute on chronic CKD Continue supporitve care, IV hydration Dm management DVT/GI prophy For if mental status improves further. Subjective Date of service: 04/16/19 Principal diagnosis: Metabolic encephalopathy, UTI, HPI, DM, Tre movt Interval history: Patient seen and examined. Extremities afebrile. Mental status improving Objective - Exam Narrative Exam: Constitutional: Well-nourished well-developed. In no distress Head: Normocephalic atraumatic Eyes: Pupils are equal round and reactive to light Nose: No enlarged turbinates, no septal deviation. Mouth: Moist mucous membranes. Neck: Supple no thyromegaly. No bruit. No JVD Heart: Regular rate and rhythm, S1-S2 normal. No rubs murmurs or gallop Lungs: Clear to auscultation bilaterally. no rales or rhonchi Abdomen: Soft, nontender. Bowel sound are present. Extremities: No edema, no cyanosis, no clubbing. Neuro: Alert oriented Oriented x2. No focal sensory or motor deficit. Skin: No rashes or hyperpigmented spots Musculoskeletal system: No joint pain or swelling Hematological: No petechia or subcutanous hemorrhages. Immunological: No multiple septic spots on the skin Lymphatic: No generalized lymphadenopathy Psychiatry: Euthymic. Calm. - Constitutional Vitals: Vital Signs - 12hr 04/16/19 04/16/19 04/16/19 00:23 02:07 07:00 Temperature 97.8 F 97.9 F Pulse Rate 91 H 94 H Respiratory 18 16 18 Rate Blood Pressure 155/79 Blood Pressure 198/98 [Right] O2 Sat by Pulse 96 92 98 Oximetry 04/16/19 09:48 Temperature Pulse Rate 91 H Respiratory Rate Blood Pressure 140/72 Blood Pressure [Right] O2 Sat by Pulse Oximetry - Labs CBC & Chem 7: 04/16/19 05:15 04/16/19 05:15 Labs: Abnormal lab results 04/15/19 04/15/19 04/16/19 Range/Units 16:39 21:40 05:15 RBC 3.02 L (3.65-5.03) M/mm3 Hgb 9.3 L (10.1-14.3) gm/dl Hct 28.2 L (30.3-42.9) % Chloride (98-107) mmol/L BUN (7-17) mg/dL Creatinine (0.7-1.2) mg/dL Glucose (65-100) mg/dL POC Glucose 205 H 250 H (70-105) 04/16/19 04/16/19 04/16/19 Range/Units 05:15 07:24 11:32 RBC (3.65-5.03) M/mm3 Hgb (10.1-14.3) gm/dl Hct (30.3-42.9) % Chloride 107.4 H (98-107) mmol/L BUN 45 H (7-17) mg/dL Creatinine 2.3 H (0.7-1.2) mg/dL Glucose 183 H (65-100) mg/dL POC Glucose 199 H 274 H (70-105)
--- NOTE | 2019-04-16 12:14 | Progress Note ---
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 Absent: tenderness, meningismus, lymphadenopathy, thyromegaly - Respiratory Respiratory exam: Present: normal lung sounds bilaterally - Cardiovascular Cardiovascular Exam: Present: regular rate, normal rhythm, normal heart sounds - GI/Abdominal GI/Abdominal exam: Present: soft, normal bowel sounds. Absent: distended, tend erness, guarding, rebound, rigid, organomegaly, mass, bruit, pulsatile mass, hernia - Extremities Exam Extremities exam: Present: normal inspection, full ROM, normal capillary refill. Absent: pedal edema, calf tenderness - Back Exam Back exam: Present: normal inspection, full ROM. Absent: CVA tenderness (R) - Neurological Exam Neurological exam: Present: alert, oriented X3, CN II-XII intact - Psychiatric Psychiatric exam: Present: normal mood - Skin Skin exam: Present: warm, intact, normal color - Vital Signs Vital signs: Vital Signs - 12hr 04/16/19 04/16/19 04/16/19 00:23 02:07 07:00 Temperature 97.8 F 97.9 F Pulse Rate 91 H 94 H Respiratory 18 16 18 Rate Blood Pressure 155/79 Blood Pressure 198/98 [Right] O2 Sat by Pulse 96 92 98 Oximetry 04/16/19 09:48 Temperature Pulse Rate 91 H Respiratory Rate Blood Pressure 140/72 Blood Pressure [Right] O2 Sat by Pulse Oximetry - Lab 04/16/19 05:15 04/16/19 05:15 Most recent lab results Calcium 8.9 mg/dL (8.4-10.2) 04/16/19 05:15 Medications & Allergies - Medications Allergies/Adverse Reactions: Allergies No Known Allergies Allergy (Unverified 04/14/19 17:42) Home Medications: Home Medications Medication Instructions Recorded Confirmed Last Taken Type Acetaminophen [Tylenol] 1,000 mg PO Q8HR 04/14/19 04/14/19 Unknown History Acetaminophen [Tylenol] 650 mg PO Q4HR PRN 04/14/19 04/14/19 Unknown History Amitriptyline HCl 200 mg PO QHS 04/14/19 04/14/19 Unknown History Aspirin EC [Halfprin EC] 81 mg PO QDAY 04/14/19 04/14/19 Unknown History AtorvaSTATin [Lipitor] 20 mg PO QHS 04/14/19 04/14/19 Unknown History Carvedilol [Coreg] 6.25 mg PO QAM 04/14/19 04/14/19 Unknown History Diclofenac 1% [Diclofenac 1% 2 gm TP QID 04/14/19 04/14/19 Unknown History topical gel] Docusate Sodium [Colace] 100 mg PO BID PRN 04/14/19 04/14/19 Unknown History FLUoxetine HCL [PROzac] 40 mg PO QDAY 04/14/19 04/14/19 Unknown History Folic Acid [Folvite] 1 mg PO QDAY 04/14/19 04/14/19 Unknown History Furosemide [Lasix TAB] 40 mg PO BID 04/14/19 04/14/19 Unknown History Gabapentin [Neurontin] 300 mg PO BID 04/14/19 04/14/19 Unknown History Insulin Lispro 3 unit SQ TIDWM 04/14/19 04/14/19 Unknown History Lidocaine [Lidoderm] 1 each TP Q24H PRN 04/14/19 04/14/19 Unknown History Lispro Insulin [HumaLOG] See Protocol SQ ACHS 04/14/19 04/14/19 Unknown History Losartan [Cozaar] 50 mg PO QDAY 04/14/19 04/14/19 Unknown History NIFEdipine [Nifedipine ER] 30 mg PO QDAY 04/14/19 04/14/19 Unknown History Polyethylene Glycol 3350 [Miralax 17 gm PO QDAY 04/14/19 04/14/19 Unknown History 3350] Sennosides Tab [Senokot] 2 tab PO QDAY PRN 04/14/19 04/14/19 Unknown History traMADol [Ultram] 50 mg PO Q6HR PRN 04/14/19 04/14/19 Unknown History Active Medications: Generic Name Dose Route Start Last Admin Trade Name Phillip PRN Reason Stop Dose Admin Amitriptyline HCl 200 mg 04/15/19 22:00 04/15/19 22:30 Elavil PO 200 mg QHS TEAGAN Administration Atorvastatin Calcium 20 mg 04/15/19 22:00 04/15/19 22:31 Lipitor PO 20 mg QHS TEAGAN Administration Carvedilol 6.25 mg 04/15/19 10:00 04/16/19 09:48 Coreg PO 6.25 mg QAM TEAGAN Administration Docusate Sodium 100 mg 04/15/19 03:50 Colace PO BID PRN Constipation Folic Acid 1 mg 04/15/19 10:00 04/16/19 09:48 Folvite PO 1 mg QDAY TEAGAN Administration Gabapentin 300 mg 04/15/19 10:00 04/16/19 09:49 Neurontin PO 300 mg BID TEAGAN Administration Heparin Sodium (Porcine) 5,000 unit 04/14/19 22:15 04/16/19 09:49 Heparin SUB-Q 5,000 unit Q12HR TEAGAN Administration Hydralazine HCl 10 mg 04/15/19 22:30 04/15/19 23:11 Apresoline IV 10 mg Q4H PRN Administration Blood Pressure Ceftriaxone Sodium 1 gm in 50 mls @ 100 mls/hr 04/15/19 10:00 04/16/19 09:44 Rocephin/Ns 1 Gm/50 Ml IV 100 mls/hr Q24HR TEAGAN Administration Protocol Sodium Chloride 1,000 mls @ 75 mls/hr 04/15/19 12:00 Nacl 0.9% 1000 Ml IV DIRECT TEAGAN Insulin Human Regular 0 units 04/15/19 07:30 04/16/19 11:38 Humulin R SUB-Q 3 units AC TEAGAN Administration Protocol Insulin Human Regular 0 units 04/15/19 22:00 04/15/19 22:32 Humulin R SUB-Q 3 units QHS TEAGAN Administration Protocol Nifedipine 30 mg 04/15/19 08:00 04/16/19 08:12 Procardia Xl PO 30 mg QDAY@0800 TEAGAN Administration Polyethylene Glycol 17 gm 04/15/19 10:00 04/16/19 09:49 Miralax 3350 PO 17 gm QDAY TEAGAN Administration Tramadol HCl 50 mg 04/15/19 03:33 04/16/19 08:12 Ultram PO 50 mg Q6H PRN Administration Pain, Moderate (4-6)
--- NOTE | 2019-04-16 12:42 | Progress Note ---
Assessment and Plan Patient is a 69 y/o woman w/ a h/o CKD, DM, HTN, HLD, CHF, who p/w b/l UE jerking movements since yesterday. According to the patient's clinical findings, she has negative myoclonus/asterixis, which is notable on exam with arms outstretched. Patient states that the movement in arms has improved since yesterday, which correlates with improvement in renal function. Plan: 1. Negative myoclonus/asterixis: - Likely due to underlying CKD with worsened renal function - Improving gradually, as creatinine improves. - Improving now that creatinine is also improving. - Ammonia level normal. - Continue to correct metabolic abnormalities per primary/nephrology teams - EEG: no seizures or epileptiform activity. - Will sign off. Please call with any questions. Thank you for allowing me to take part in the care of this patient. Danilo Dempsey MD Neurology Subjective Date of service: 04/16/19 Principal diagnosis: maxwell Interval history: No acute events overnight. Asterixis has improved since yesterday. Objective - Exam Narrative Exam: Patient is awake, alert, oriented x4, follows complex commands. PERRL, VFF, tongue midline, no facial weakness, b/l intact to LT. No dysarthria or aphasia noted. B/l UE strength 5/5, RLE strength 4/5, LLE strength 2/5 and limited due to pain in left hip. B/l intact to LT. 2+ reflexes throughout. Limited range of motion of LLE due to hip pain. B/l intact to FTN. Negative myoclonus/asterixis noted with arms outstretched in b/l UE. - Vital Sign Vital Signs - 12hr 04/16/19 04/16/19 04/16/19 02:07 07:00 09:48 Temperature 97.8 F 97.9 F Pulse Rate 91 H 94 H 91 H Respiratory 16 18 Rate Blood Pressure 155/79 140/72 Blood Pressure 198/98 [Right] O2 Sat by Pulse 92 98 Oximetry - General Apperance Constitutional: comfortable - EENT EENT: ATNC, PERRL, mucous membranes moist, hearing intact, vision intact - Respiratory Respiratory: lungs clear, normal breath sounds - Cardiovascular Cardiovascular: regular rate, normal S1, normal S2 Extremities: no clubbing, cyanosis, no inflammation - Gastrointestinal Gastrointestinal: normoactive bowel sounds, soft, non-tender - Musculoskeletal Musculoskeletal: pain in joint (left hip) - Psychiatric Psychiatric: mood/affect appropriate - Laboratory Findings CBC and BMP: 04/16/19 05:15 04/16/19 05:15 Abnormal Lab Findings: Abnormal Labs 04/14/19 04/14/19 04/14/19 17:22 17:22 19:20 RBC 2.84 L Hgb 8.8 L Hct 26.6 L Sodium 133 L Potassium 5.5 H Chloride Carbon Dioxide 19 L BUN 61 H Creatinine 3.4 H Glucose 213 H POC Glucose Albumin 3.2 L Urine WBC (Auto) 8.0 H 04/14/19 04/15/19 04/15/19 22:34 05:56 07:20 RBC Hgb Hct Sodium Potassium Chloride 107.4 H Carbon Dioxide BUN 56 H Creatinine 3.0 H Glucose 154 H POC Glucose 158 H 149 H Albumin Urine WBC (Auto) 04/15/19 04/15/19 04/15/19 11:44 16:39 21:40 RBC Hgb Hct Sodium Potassium Chloride Carbon Dioxide BUN Creatinine Glucose POC Glucose 229 H 205 H 250 H Albumin Urine WBC (Auto) 04/16/19 04/16/19 04/16/19 05:15 05:15 07:24 RBC 3.02 L Hgb 9.3 L Hct 28.2 L Sodium Potassium Chloride 107.4 H Carbon Dioxide BUN 45 H Creatinine 2.3 H Glucose 183 H POC Glucose 199 H Albumin Urine WBC (Auto) 04/16/19 11:32 RBC Hgb Hct Sodium Potassium Chloride Carbon Dioxide BUN Creatinine Glucose POC Glucose 274 H Albumin Urine WBC (Auto)
[2019-04-16] MEDS: hydrALAZINE 20 MG/1 ML INJ IV PRN (22:09)
[2019-04-16] MEDS: AMITRIPTYLINE 25 MG TAB PO SCH (22:55)
[2019-04-17 06:11] LABS: Calcium 9.1 mg/dL (8.4-10.2)
[2019-04-17] MEDS: traMADol 50 MG TAB PO PRN (08:16)
[2019-04-17] MEDS: NIFEdipine XL 30 MG TAB PO SCH (08:16)
[2019-04-17] MEDS: INSULIN REGULAR, HUMAN 100 UNITS/1 ML SUB-Q SCH ×4 (08:17→22:05)
[2019-04-17] MEDS: cefTRIAXone/NS 1 GM/50 ML 1 GM/50 ML BAG IV SCH (09:33)
[2019-04-17] MEDS: HEPARIN 5,000 UNIT/1 ML VIAL SUB-Q SCH ×2 (09:34→21:11)
[2019-04-17] MEDS: POLYETHYLENE GLYCOL 3350 17 GM POWDER PO SCH (09:34)
[2019-04-17] MEDS: carvediloL 6.25 MG TAB PO SCH (09:34)
[2019-04-17] MEDS: GABAPENTIN 300 MG CAP PO SCH ×2 (09:34→21:08)
[2019-04-17] MEDS: FOLIC ACID 1 MG TAB PO SCH (09:34)
--- NOTE | 2019-04-17 10:17 | Progress Note ---
Assessment and Plan Impression: * BETY * UTI * volume depletion * AMS * hyperglycemia * depression Plan: * bety likely due to volume depletion and hypoperfusion with UTI * iv abx and ivfs * strict i/os * dailys lytes * renal diet * noted renal us with no pvr * cr is better today' * no indication for sole tier * hold arb and prozac with hyperkalemia and hyponatremia * ok to dc home Subjective Date of service: 04/17/19 Principal diagnosis: Metabolic encephalopathy, UTI, HPI, DM, Tre movt Interval history: resting well in bed today Objective - Exam Narrative Exam: - General Limitations: Physical Limitation General appearance: alert, in no apparent distress - Head Head exam: Present: atraumatic, normocephalic, normal inspection - Eye Eye exam: Present: normal appearance, PERRL - ENT ENT exam: Present: normal exam, normal orophraynx, mucous membranes moist - Neck Neck exam: Present: normal inspection, full ROM. Absent: tenderness, meningismus, lymphadenopathy, thyromegaly - Respiratory Respiratory exam: Present: normal lung sounds bilaterally - Cardiovascular Cardiovascular Exam: Present: regular rate, normal rhythm, normal heart sounds - GI/Abdominal GI/Abdominal exam: Present: soft, normal bowel sounds. Absent: distended, tenderness, guarding, rebound, rigid, organomegaly, mass, bruit, pulsatile mass, hernia - Extremities Exam Extremities exam: Present: normal inspection, full ROM, normal capillary refill. Absent: pedal edema, calf tenderness - Back Exam Back exam: Present: normal inspection, full ROM. Absent: CVA tenderness (R) - Neurological Exam Neurological exam: Present: alert, oriented X3, CN II-XII intact - Psychiatric Psychiatric exam: Present: normal mood - Skin Skin exam: Present: warm, intact, normal color - Vital Signs Vital signs: Vital Signs - 12hr 04/17/19 04/17/19 04/17/19 01:54 07:40 09:34 Temperature 97.7 F 99.0 F Pulse Rate 86 91 H 89 Respiratory 14 16 Rate Blood Pressure 141/80 192/92 182/94 O2 Sat by Pulse 92 98 Oximetry - Lab 04/16/19 05:15 04/17/19 05:01 Most recent lab results Calcium 9.1 mg/dL (8.4-10.2) 04/17/19 05:01 Medications & Allergies - Medications Allergies/Adverse Reactions: Allergies No Known Allergies Allergy (Unverified 04/14/19 17:42) Home Medications: Home Medications Medication Instructions Recorded Confirmed Last Taken Type Acetaminophen [Tylenol] 1,000 mg PO Q8HR 04/14/19 04/14/19 Unknown History Acetaminophen [Tylenol] 650 mg PO Q4HR PRN 04/14/19 04/14/19 Unknown History Amitriptyline HCl 200 mg PO QHS 04/14/19 04/14/19 Unknown History Aspirin EC [Halfprin EC] 81 mg PO QDAY 04/14/19 04/14/19 Unknown History AtorvaSTATin [Lipitor] 20 mg PO QHS 04/14/19 04/14/19 Unknown History Carvedilol [Coreg] 6.25 mg PO QAM 04/14/19 04/14/19 Unknown History Diclofenac 1% [Diclofenac 1% 2 gm TP QID 04/14/19 04/14/19 Unknown History topical gel] Docusate Sodium [Colace] 100 mg PO BID PRN 04/14/19 04/14/19 Unknown History FLUoxetine HCL [PROzac] 40 mg PO QDAY 04/14/19 04/14/19 Unknown History Folic Acid [Folvite] 1 mg PO QDAY 04/14/19 04/14/19 Unknown History Furosemide [Lasix TAB] 40 mg PO BID 04/14/19 04/14/19 Unknown History Gabapentin [Neurontin] 300 mg PO BID 04/14/19 04/14/19 Unknown History Insulin Lispro 3 unit SQ TIDWM 04/14/19 04/14/19 Unknown History Lidocaine [Lidoderm] 1 each TP Q24H PRN 04/14/19 04/14/19 Unknown History Lispro Insulin [HumaLOG] See Protocol SQ ACHS 04/14/19 04/14/19 Unknown History Losartan [Cozaar] 50 mg PO QDAY 04/14/19 04/14/19 Unknown History NIFEdipine [Nifedipine ER] 30 mg PO QDAY 04/14/19 04/14/19 Unknown History Polyethylene Glycol 3350 [Miralax 17 gm PO QDAY 04/14/19 04/14/19 Unknown His tory 3350] Sennosides Tab [Senokot] 2 tab PO QDAY PRN 04/14/19 04/14/19 Unknown History traMADol [Ultram] 50 mg PO Q6HR PRN 04/14/19 04/14/19 Unknown History Active Medications: Generic Name Dose Route Start Last Admin Trade Name Phillip PRN Reason Stop Dose Admin Amitriptyline HCl 200 mg 04/15/19 22:00 04/16/19 22:55 Elavil PO 200 mg QHS TEAGAN Administration Atorvastatin Calcium 20 mg 04/15/19 22:00 04/16/19 22:09 Lipitor PO 20 mg QHS TEAGAN Administration Carvedilol 6.25 mg 04/15/19 10:00 04/17/19 09:34 Coreg PO 6.25 mg QAM TEAGAN Administration Docusate Sodium 100 mg 04/15/19 03:50 Colace PO BID PRN Constipation Folic Acid 1 mg 04/15/19 10:00 04/17/19 09:34 Folvite PO 1 mg QDAY TEAGAN Administration Gabapentin 300 mg 04/15/19 10:00 04/17/19 09:34 Neurontin PO 300 mg BID TEAGAN Administration Heparin Sodium (Porcine) 5,000 unit 04/14/19 22:15 04/17/19 09:34 Heparin SUB-Q 5,000 unit Q12HR TEAGAN Administration Hydralazine HCl 10 mg 04/15/19 22:30 04/16/19 22:09 Apresoline IV 10 mg Q4H PRN Administration Blood Pressure Ceftriaxone Sodium 1 gm in 50 mls @ 100 mls/hr 04/15/19 10:00 04/17/19 09:33 Rocephin/Ns 1 Gm/50 Ml IV 100 mls/hr Q24HR TEAGAN Administration Protocol Sodium Chloride 1,000 mls @ 75 mls/hr 04/15/19 12:00 Nacl 0.9% 1000 Ml IV DIRECT TEAGAN Insulin Human Regular 0 units 04/15/19 07:30 04/17/19 08:17 Humulin R SUB-Q 3 units AC TEAGAN Administration Protocol Insulin Human Regular 0 units 04/15/19 22:00 04/16/19 22:11 Humulin R SUB-Q 1 units QHS TEAGAN Administration Protocol Nifedipine 30 mg 04/15/19 08:00 04/17/19 08:16 Procardia Xl PO 30 mg QDAY@0800 TEAGAN Administration Polyethylene Glycol 17 gm 04/15/19 10:00 04/17/19 09:34 Miralax 3350 PO 17 gm QDAY TEAGAN Administration Tramadol HCl 50 mg 04/15/19 03:33 04/17/19 08:16 Ultram PO 50 mg Q6H PRN Administration Pain, Moderate (4-6)
[2019-04-17] MEDS ORDERED: hydrALAZINE 20 MG/1 ML INJ IV PRN (13:06)
--- NOTE | 2019-04-17 13:07 | Progress Note ---
Assessment and Plan Assessment and plan: Patient is 69 years old female who resides at [facility] facility with past medical hx CKD, DM, HTN. Patient brought to the emergency room for evaluation of jerking movements in her right hand for 1 day. Patient denied any other symptoms. She denied any chest pain, weakness, numbness or tingling sensation. She also denied any headache, chest pain, shortness of breath, abdominal pain. 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 The EEG showed no epileptiform activity Hyponatremia - Improved Hypertensive urgency Sinus Bradycardia Plan Continue supportive care Neurology evaluated and ruled out seizures Neurology notes abnormal movement due to Uremia Nephrology following Increase dose of Hydralazine to 20mg iv prn May increase Nifedipine to 60mg if BP remains high Hold metoprolol because of bradycardia Continue supporitve care, IV hydration Dm management DVT/GI prophy patient not stable for discharge today because of bradycardia and hypertensive urgency History Interval history: Jerky movements resolved Chronic pain left lower ext after fall last month (Mar 2019) Hospitalist Physical - Physical exam Narrative exam: Gen: Not in acute distress, Lying in bed, Obese HEENT: Normocephalic, atraumatic Neck: supple, no JVD Heart: S1 and S2 reg, no murmurs, rubs or gallop Lungs: Clear to auscultation, no rhonchi, no wheeze Abd: soft, Non tender, non distended, normal BS, Ext: No edema, no clubbing, no cyanosis, tender left hip, left thigh Neuro: Awake, alert, oriented X 3, no focal neurological signs - Constitutional Vitals: Temp Pulse Resp BP Pulse Ox 99.0 F 88 18 182/94 98 04/17/19 07:40 04/17/19 10:00 04/17/19 10:00 04/17/19 09:34 04/17/19 10:00 Results - Labs CBC & Chem 7: 04/16/19 05:15 04/17/19 05:01 Labs: Laboratory Last Values WBC 7.3 K/mm3 (4.5-11.0) 04/16/19 05:15 RBC 3.02 M/mm3 (3.65-5.03) L 04/16/19 05:15 Hgb 9.3 gm/dl (10.1-14.3) L 04/16/19 05:15 Hct 28.2 % (30.3-42.9) L 04/16/19 05:15 MCV 93 fl (79-97) 04/16/19 05:15 MCH 31 pg (28-32) 04/16/19 05:15 MCHC 33 % (30-34) 04/16/19 05:15 RDW 14.9 % (13.2-15.2) 04/16/19 05:15 Plt Count 227 K/mm3 (140-440) 04/16/19 05:15 Lymph % (Auto) 30.1 % (13.4-35.0) 04/14/19 17:22 [place] % (Auto) 5.3 % (0.0-7.3) 04/14/19 17:22 Eos % (Auto) 4.0 % (0.0-4.3) 04/14/19 17:22 Baso % (Auto) 0.8 % (0.0-1.8) 04/14/19 17:22 Lymph # 2.6 K/mm3 (1.2-5.4) 04/14/19 17:22 [place] # 0.5 K/mm3 (0.0-0.8) 04/14/19 17:22 Eos # 0.3 K/mm3 (0.0-0.4) 04/14/19 17:22 Baso # 0.1 K/mm3 (0.0-0.1) 04/14/19 17:22 Seg Neutrophils % 59.8 % (40.0-70.0) 04/14/19 17:22 Seg Neutrophils # 5.3 K/mm3 (1.8-7.7) 04/14/19 17:22 Sodium 137 mmol/L (137-145) 04/17/19 05:01 Potassium 4.5 mmol/L (3.6-5.0) 04/17/19 05:01 Chloride 104.5 mmol/L (98-107) 04/17/19 05:01 Carbon Dioxide 22 mmol/L (22-30) 04/17/19 05:01 Anion Gap 15 mmol/L 04/17/19 05:01 BUN 38 mg/dL (7-17) H 04/17/19 05:01 Creatinine 2.2 mg/dL (0.7-1.2) H 04/17/19 05:01 Estimated GFR 27 ml/min 04/17/19 05:01 BUN/Creatinine Ratio 17 % 04/17/19 05:01 Glucose 195 mg/dL (65-100) H 04/17/19 05:01 POC Glucose 269 (70-105) H 04/17/19 07:46 Calcium 9.1 mg/dL (8.4-10.2) 04/17/19 05:01 Total Bilirubin < 0.20 mg/dL (0.1-1.2) 04/14/19 17:22 AST 22 units/L (5-40) 04/14/19 17:22 ALT 32 units/L (7-56) 04/14/19 17:22 Alkaline Phosphatase 95 units/L (35-129) 04/14/19 17:22 Ammonia 27.0 umol/L (25-60) 04/15/19 16:39 Total Protein 6.6 g/dL (6.3-8.2) 04/14/19 17:22 Albumin 3.2 g/dL (3.9-5) L 04/14/19 17:22 Albumin/Globulin Ratio 0.9 % 04/14/19 17:22 Urine Color Yellow (Yellow) 04/14/19 19:20 Urine Turbidity Slightly-cloudy (Clear) 04/14/19 19:20 Urine pH 5.0 (5.0-7.0) 04/14/19 19:20 Ur Specific [place] 1.014 (1.003-1.030) 04/14/19 19:20 Urine Protein 100 mg/dl mg/dL (Negative) 04/14/19 19:20 Urine Glucose (UA) 50 mg/dL (Negative) 04/14/19 19:20 Urine Ketones Neg mg/dL (Negative) 04/14/19 19:20 Urine Blood Sm (Negative) 04/14/19 19:20 Urine Nitrite Neg (Negative) 04/14/19 19:20 Urine Bilirubin Neg (Negative) 04/14/19 19:20 Urine Urobilinogen < 2.0 mg/dL (<2.0) 04/14/19 19:20 Ur Leukocyte Esterase Sm (Negative) 04/14/19 19:20 Urine WBC (Auto) 8.0 /HPF (0.0-6.0) H 04/14/19 19:20 Urine RBC (Auto) 6.0 /HPF (0.0-6.0) 04/14/19 19:20 U Epithel Cells (Auto) 4.0 /HPF (0-13.0) 04/14/19 19:20 Urine Bacteria (Auto) 1+ /HPF (Negative) 04/14/19 19:20 Urine Mucus Few /HPF 04/14/19 19:20 Active Medications - Current Medications Current Medications: Generic Name Dose Route Start Last Admin Trade Name Freq PRN Reason Stop Dose Admin Amitriptyline HCl 200 mg 04/15/19 22:00 04/16/19 22:55 Elavil PO 200 mg QHS TEAGAN Administration Atorvastatin Calcium 20 mg 04/15/19 22:00 04/16/19 22:09 Lipitor PO 20 mg QHS TEAGAN Administration Carvedilol 6.25 mg 04/15/19 10:00 04/17/19 09:34 Coreg PO 6.25 mg QAM TEAGAN Administration Docusate Sodium 100 mg 04/15/19 03:50 Colace PO BID PRN Constipation Folic Acid 1 mg 04/15/19 10:00 04/17/19 09:34 Folvite PO 1 mg QDAY TEAGAN Administration Gabapentin 300 mg 04/15/19 10:00 04/17/19 09:34 Neurontin PO 300 mg BID TEAGAN Administration Heparin Sodium (Porcine) 5,000 unit 04/14/19 22:15 04/17/19 09:34 Heparin SUB-Q 5,000 unit Q12HR TEAGAN Administration Hydralazine HCl 20 mg 04/17/19 13:06 Apresoline IV Q4HR PRN SBP>170 or DBP>110 Ceftriaxone Sodium 1 gm in 50 mls @ 100 mls/hr 04/15/19 10:00 04/17/19 09:33 Rocephin/Ns 1 Gm/50 Ml IV 100 mls/hr Q24HR TEAGAN Administration Protocol Sodium Chloride 1,000 mls @ 75 mls/hr 04/15/19 12:00 Nacl 0.9% 1000 Ml IV DIRECT TEAGAN Insulin Human Regular 0 units 04/15/19 07:30 04/17/19 12:30 Humulin R SUB-Q 1 units AC TEAGAN Administration Protocol Insulin Human Regular 0 units 04/15/19 22:00 04/16/19 22:11 Humulin R SUB-Q 1 units QHS TEAGAN Administration Protocol Nifedipine 30 mg 04/15/19 08:00 04/17/19 08:16 Procardia Xl PO 30 mg QDAY@0800 TEAGAN Administration Oxycodone/Acetaminophen 1 tab 04/17/19 13:04 Percocet 5/325 PO Q6H PRN Pain, Moderate (4-6) Polyethylene Glycol 17 gm 04/15/19 10:00 04/17/19 09:34 Miralax 3350 PO 17 gm QDAY TEAGAN Administration
[2019-04-17] MEDS: oxyCODONE /ACETAMINOPHEN 5-325MG TAB PO PRN ×2 (13:23→20:12)
[2019-04-17] MEDS: AMITRIPTYLINE 25 MG TAB PO SCH (22:08)
[2019-04-18 05:55] LABS: Calcium 9.2 mg/dL (8.4-10.2)
[2019-04-18] MEDS: NIFEdipine XL 30 MG TAB PO SCH (09:00)
[2019-04-18] MEDS: INSULIN REGULAR, HUMAN 100 UNITS/1 ML SUB-Q SCH ×2 (09:02→12:30)
[2019-04-18] MEDS: POLYETHYLENE GLYCOL 3350 17 GM POWDER PO SCH (10:00)
[2019-04-18] MEDS: GABAPENTIN 300 MG CAP PO SCH (10:00)
[2019-04-18] MEDS: cefTRIAXone/NS 1 GM/50 ML 1 GM/50 ML BAG IV SCH (10:00)
[2019-04-18] MEDS: FOLIC ACID 1 MG TAB PO SCH (10:00)
[2019-04-18] MEDS: HEPARIN 5,000 UNIT/1 ML VIAL SUB-Q SCH (10:01)
[2019-04-18] MEDS: carvediloL 6.25 MG TAB PO SCH (10:01)
--- NOTE | 2019-04-18 10:06 | Progress Note ---
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 * hold arb and prozac with hyperkalemia and hyponatremia * ok to dc home Subjective Date of service: 04/18/19 Principal diagnosis: Metabolic encephalopathy, UTI, HPI, DM, Tre movt Interval history: resting well in bed today Objective - Exam Narrative Exam: - General Limitations: Physical Limitation General appearance: alert, in no apparent distress - Head Head exam: Present: atraumatic, normocephalic, normal inspection - Eye Eye exam: Present: normal appearance, PERRL - ENT ENT exam: Present: normal exam, normal orophraynx, mucous membranes moist - Neck Neck exam: Present: normal inspection, full ROM. Absent: tenderness, meningismus, lymphadenopathy, thyromegaly - Respiratory Respiratory exam: Present: normal lung sounds bilaterally - Cardiovascular Cardiovascular Exam: Present: regular rate, normal rhythm, normal heart sounds - GI/Abdominal GI/Abdominal exam: Present: soft, normal bowel sounds. Absent: distended, tenderness, guarding, rebound, rigid, organomegaly, mass, bruit, pulsatile mass, hernia - Extremities Exam Extremities exam: Present: normal inspection, full ROM, normal capillary refill. Absent: pedal edema, calf tenderness - Back Exam Back exam: Present: normal inspection, full ROM. Absent: CVA tenderness (R) - Neurological Exam Neurological exam: Present: alert, oriented X3, CN II-XII intact - Psychiatric Psychiatric exam: Present: normal mood - Skin Skin exam: Present: warm, intact, normal color - Vital Signs Vital signs: Vital Signs - 12hr 04/18/19 04/18/19 04/18/19 02:16 07:29 10:01 Temperature 98.9 F 98.4 F Pulse Rate 86 89 89 Respiratory 18 18 Rate Blood Pressure 145/84 146/90 146/90 O2 Sat by Pulse 92 97 Oximetry - Lab 04/16/19 05:15 04/18/19 04:42 Most recent lab results Calcium 9.2 mg/dL (8.4-10.2) 04/18/19 04:42 Medications & Allergies - Medications Allergies/Adverse Reactions: Allergies No Known Allergies Allergy (Unverified 04/14/19 17:42) Home Medications: Home Medications Medication Instructions Recorded Confirmed Last Taken Type Acetaminophen [Tylenol] 1,000 mg PO Q8HR 04/14/19 04/14/19 Unknown History Acetaminophen [Tylenol] 650 mg PO Q4HR PRN 04/14/19 04/14/19 Unknown History Amitriptyline HCl 200 mg PO QHS 04/14/19 04/14/19 Unknown History Aspirin EC [Halfprin EC] 81 mg PO QDAY 04/14/19 04/14/19 Unknown History AtorvaSTATin [Lipitor] 20 mg PO QHS 04/14/19 04/14/19 Unknown History Carvedilol [Coreg] 6.25 mg PO QAM 04/14/19 04/14/19 Unknown History Diclofenac 1% [Diclofenac 1% 2 gm TP QID 04/14/19 04/14/19 Unknown History topical gel] Docusate Sodium [Colace] 100 mg PO BID PRN 04/14/19 04/14/19 Unknown History FLUoxetine HCL [PROzac] 40 mg PO QDAY 04/14/19 04/14/19 Unknown History Folic Acid [Folvite] 1 mg PO QDAY 04/14/19 04/14/19 Unknown History Furosemide [Lasix TAB] 40 mg PO BID 04/14/19 04/14/19 Unknown History Gabapentin [Neurontin] 300 mg PO BID 04/14/19 04/14/19 Unknown History Insulin Lispro 3 unit SQ TIDWM 04/14/19 04/14/19 Unknown History Lidocaine [Lidoderm] 1 each TP Q24H PRN 04/14/19 04/14/19 Unknown History Lispro Insulin [HumaLOG] See Protocol SQ ACHS 04/14/19 04/14/19 Unknown History Losartan [Cozaar] 50 mg PO QDAY 04/14/19 04/14/19 Unknown History NIFEdipine [Nifedipine ER] 30 mg PO QDAY 04/14/19 04/14/19 Unknown History Polyethylene Glycol 3350 [Miralax 17 gm PO QDAY 04/14/19 04/14/19 Unknown Histo ry 3350] Sennosides Tab [Senokot] 2 tab PO QDAY PRN 04/14/19 04/14/19 Unknown History traMADol [Ultram] 50 mg PO Q6HR PRN 04/14/19 04/14/19 Unknown History Active Medications: Generic Name Dose Route Start Last Admin Trade Name Phillip PRN Reason Stop Dose Admin Amitriptyline HCl 200 mg 04/15/19 22:00 04/17/19 22:08 Elavil PO 200 mg QHS TEAGAN Administration Atorvastatin Calcium 20 mg 04/15/19 22:00 04/17/19 21:08 Lipitor PO 20 mg QHS TEAGAN Administration Carvedilol 6.25 mg 04/15/19 10:00 04/18/19 10:01 Coreg PO 6.25 mg QAM TEAGAN Administration Docusate Sodium 100 mg 04/15/19 03:50 Colace PO BID PRN Constipation Folic Acid 1 mg 04/15/19 10:00 04/18/19 10:00 Folvite PO 1 mg QDAY TEAGAN Administration Gabapentin 300 mg 04/15/19 10:00 04/18/19 10:00 Neurontin PO 300 mg BID TEAGAN Administration Heparin Sodium (Porcine) 5,000 unit 04/14/19 22:15 04/18/19 10:01 Heparin SUB-Q 5,000 unit Q12HR TEAGAN Administration Hydralazine HCl 20 mg 04/17/19 13:06 04/17/19 13:23 Apresoline IV 20 mg Q4HR PRN Administration SBP>170 or DBP>110 Ceftriaxone Sodium 1 gm in 50 mls @ 100 mls/hr 04/15/19 10:00 04/18/19 10:00 Rocephin/Ns 1 Gm/50 Ml IV 100 mls/hr Q24HR TEAGAN Administration Protocol Sodium Chloride 1,000 mls @ 75 mls/hr 04/15/19 12:00 Nacl 0.9% 1000 Ml IV DIRECT [facility] Insulin Human Regular 0 units 04/15/19 07:30 04/18/19 09:02 Humulin R SUB-Q 2 units AC TEAGAN Administration Protocol Insulin Human Regular 0 units 04/15/19 22:00 04/17/19 22:05 Humulin R SUB-Q 4 units QHS TEAGAN Administration Protocol Nifedipine 30 mg 04/15/19 08:00 04/18/19 09:00 Procardia Xl PO 30 mg QDAY@0800 TEAGAN Administration Oxycodone/Acetaminophen 1 tab 04/17/19 13:04 04/17/19 20:12 Percocet 5/325 PO 1 tab Q6H PRN Administration Pain, Moderate (4-6) Polyethylene Glycol 17 gm 04/15/19 10:00 04/18/19 10:00 Miralax 3350 PO 17 gm QDAY TEAGAN Administration
--- NOTE | 2019-04-18 12:28 | Discharge Summary ---
Providers - Providers Date of Admission: 04/14/19 22:13 Date of discharge: 04/18/19 Attending physician: LAURENT STRINGER 04/15/19 06:00 Consult to Physician [CONS] Routine Comment: called office/yessi Consulting Provider: MULUGETA COPELAND Physician Instructions: Reason For Exam: CKD Physical Therapy Evaluation and Treat [CONS] Routine Comment: Reason For Exam: WEAKNESS 04/15/19 08:29 Consult to Physician [CONS] Routine Comment: noted/ yessi Consulting Provider: CHEPE SHIPMAN Physician Instructions: Reason For Exam: JERKY MOVEMENT Primary care physician: DESIGN TECHNOLOGY PROFESSOR Hospitalization Condition: Fair Hospital course: Patient is 69 years old female who resides at [facility] facility with past medical hx CKD, DM, HTN. Patient brought to the emergency room for evaluation of jerking movements in her right hand for 1 day. Patient denied any other symptoms. She denied any chest pain, weakness, numbness or tingling sensation. She was admitted, evaluated by Neurology. EEG was done and seizures ruled out. abnormal mivement was noted to be due to Uremia as per Neurology. Her BP was high and anti-hypertensives increased, controlling BP. She was subsequently discharged home on 04/18/19 Abnormal jerky movements due to uremia BETY on CKD secondary to vasomotor nephropathy Acute Cystitis DM with Hyperglycemia. Controlled with medications Hyperkalemia Anemia - Possible Secondary to CKD 3 Weakness lower ext Left knee pain ?Jerky movements of the Right hand due to Uremia. The EEG showed no epileptif orm activity Hyponatremia - Resolved Hypertensive urgency Sinus Bradycardia. Beta blockers were held Total time spent on discharge, 32 mins Disposition: [id number] SNF [facility] - Discharge Diagnoses (1) Acute metabolic encephalopathy Status: Acute (2) Vasomotor nephropathy Status: Acute (3) Uremia Status: Acute (4) Acute on chronic renal failure Status: Acute (5) Diabetes mellitus type 2 in obese Status: Acute (6) Hyperkalemia Status: Acute (7) Acute cystitis Status: Acute (8) Hypertensive urgency Status: Acute Core Measure Documentation - Palliative Care Palliative Care/ Comfort Measures: Not Applicable - Core Measures Any of the following diagnoses?: none Exam - Constitutional Vitals: Temp Pulse Resp BP Pulse Ox 98.4 F 89 18 146/90 97 04/18/19 07:29 04/18/19 10:01 04/18/19 07:29 04/18/19 10:01 04/18/19 07:29 Plan Activity: advance as tolerated Diet: low fat, low cholesterol, low salt, renal Plan of Treatment: 1.Follow up with PCP in 1 week. 2.Follow up with Dr. Mora in 1 week. Follow up with: PRIMARY CARE, [Primary Care Provider] - 3-5 Days Prescriptions: Furosemide [Lasix TAB] 40 mg PO QDAY #30 tablet
[2019-04-18 14:56] VITALS: BP 151/69
== END 2019-04-18 16:21 | DRG 682 ==
LOC: ED 15:47 → 2B-ACE 22:13
PROVIDERS: ADMIT Internal Medicine; ATTEND Internal Medicine
DX: N17.0 Acute kidney failure with tubular necrosis (principal); G93.41 Metabolic encephalopathy; E87.1 Hypo-osmolality and hyponatremia; N30.00 Acute cystitis without hematuria; I13.0 Hypertensive heart and chronic kidney disease with heart failure and stage 1 through stage 4 chronic kidney disease, or unspecified chronic kidney disease; D64.9 Anemia, unspecified; E87.5 Hyperkalemia; E11.65 Type 2 diabetes mellitus with hyperglycemia; E86.9 Volume depletion, unspecified; F32.9 Major depressive disorder, single episode, unspecified; E11.22 Type 2 diabetes mellitus with diabetic chronic kidney disease; I16.0 Hypertensive urgency; R00.1 Bradycardia, unspecified; I50.9 Heart failure, unspecified; N18.9 Chronic kidney disease, unspecified; Z79.899 Other long term (current) drug therapy; Z79.4 Long term (current) use of insulin; Z79.82 Long term (current) use of aspirin
CPT/HCPCS: 36415; 70450; 76770; 76857; 80048; 80053; 81001; 82140; 82962; 85025; 85027; 93005; 93010; 95819; 96365; 96372; 96375; G0378; A9270-GY; J0360; J0696; J1644; J1815; J7030